=== PATIENT | female | born 1990 | race Asian ===

== ENCOUNTER 2025-10-21 14:01 | Emergency (ER) | payer OTHER ==
[~2025-10-21] VITALS: Ht 157.5 cm; Wt 58.9 kg
[2025-10-21 14:06] VITALS: BP 129/71; PULSE 73; RESP 16; TEMP 98; O2SAT 100
--- NOTE | 2025-10-21 14:20 | Physician Documentation ---
History of Present Illness ~ Chief Complaint: Wrist pain Stated Complaint: WRIST PAIN Time Seen by MD: 14:16 OK to notify your PCP?: Yes Source: patient Mode of Arrival: POV Exam Limitations: no limitations HPI Reports having right wrist pain that has been intermittent over the past year. She reports that it started after she had a baby in 2021. She has not seen her regular doctor or had any nerve conduction studies. She is requesting a work note for the next couple of days off work. Medication Reconciliation Allergies: Coded Allergies: No Known Allergies (Unverified , 10/21/25) Review of Systems All Other Systems at this time: Reviewed and Negative Physical Exam Vital Signs: RN Vital Signs have been reviewed: Yes, Temperature: 98.0, Source: Temporal, Heart Rate: 73, Respiratory Rate: 16, BP: 129/71, Pulse Oximetry: 100, Weight: 58.900 Oxygen Flow Rate: 0 Pulse Oximetry Reflects: adequate oxygenation Physical Exam General: Alert, no distress. HEENT: No injection, moist mucous membranes. Neck: Full range of motion. Respiratory: No respiratory distress, equal chest rise and fall. Chest: No accessory muscle use. Cardiovascular: Regular rate and rhythm. Gastrointestinal: Nondistended. Extremities: Full range motion of right wrist, no obvious deformity, good CSM, good pulses, good sensation in right fingers. Neurologic: Oriented x4. Psychiatric: Normal mood and affect. Skin: Normal color, warm and dry. Progress Results/Orders Reviewed/noted all lab results: Yes Results/Orders Vital Signs 10/21/25 14:06 Temp 98.0 Pulse 73 Resp 16 B/P (MAP) 129/71 Pulse Ox 100 O2 Flow Rate 0 Medical Decision Making Additional information obtaine: old records Findings Chronic intermittent wrist pain. Suspect carpal tunnel. Given a wrist splint to help provide support as well as told to take Tylenol and ibuprofen. Gave a work note off for 3 days off of work. She was given follow up instructions as well as return instructions. General Diff Dx:Considerations: Include: Abrasion, Fracture, Hematoma, Neurovascular injury, Sprain Shoulder Diff Dx:Consideration: Include: Other Elbow Diff Dx:Considerations: Include: Other Wrist Diff Dx:Considerations: Include: Other Hand Diff Dx:Considerations: Include: Other Finger Diff Dx:Considerations: Include: Other Departure Disposition: 01 HOME / SELF CARE / HOMELESS Impression: Primary Impression: Wrist joint pain Condition: Stable Discharge Instructions: Wrist Pain, Adult Additional Instructions: Please wear the brace especially at night to help with the support. Follow up with her primary care provider regarding possible nerve conduction study. You have been given a work note for 3 days off work. Return back here for any new or worsening symptoms. Departure Forms: Excuse form Work or School Excused From: Work Excuse beginning now through the following date: Oct 24, 2025 Referrals: NO PRIMARY CARE PROVIDER (PCP) Education Educated: Patient Educated regarding: diagnosis, treatment, prognosis, need for follow up Additional Comment Medical Screen Exam This patient recieved a medical screening examination. After reviewing the individual's medical complaints with presenting symptoms and performing an appropriate physical examination, it was determined that no immediate life- threatening emergency medical condition is present. This individual is also not a women having contractions. Signature Scribe Signature: . Attestation: Scribed for Fani Tovarp by Fani Camacho NP . 10/21/25 14:26 Parts of this note were created using [employer] voice recognition software program. While efforts were made to correct any mistakes made by this voice recognition software program, nonsensical phrases may remain in this note. In addition, there may be errors and syntax, grammar, content and spelling. FANI TOVARP Oct 21, 2025 14:20
== END 2025-10-21 14:25 | disposition home or self-care (01) ==
LOC: ER 14:02
DX: M25.531 Pain in right wrist (principal)
CPT/HCPCS: 29125; 99283